=== PATIENT | male | born 1995 | race Two or more races ===

== ENCOUNTER 2020-04-28 22:28 | Emergency (ER) | payer OTHER ==
[~2020-04-28] VITALS: Ht 172.7 cm; Wt 90.7 kg
[2020-04-28 22:30] VITALS: BP 143/94
== END 2020-04-28 22:38 | disposition home or self-care (01) ==
LOC: ER 22:30
DX: U07.1 COVID-19 (principal)
CPT/HCPCS: 36415; 87426